=== PATIENT | female | born 1985 | race Caucasian/White ===

== ENCOUNTER 2025-03-01 17:21 | Emergency (ER) | payer BC, SELFPAY ==
[2025-03-01 17:24] VITALS: BP 140/87
[2025-03-01] MEDS: OMNIPAQUE 50 ML PO (17:32)
[2025-03-01 18:00] LABS: Hematocrit 43.0 % (37.0-47.0); Hemoglobin 14.3 g/dL (12.0-16.0); Mean Corp Hgb Conc. 33.3 g/dL (33.0-37.0); Mean Corpuscular Volume 93.1 fL (81.0-99.0); Nucleated Red Blood Cells % 0 %; Platelet Count 238 10^3/uL (130-400); Red Cell Dist. Width 11.9 % (11.5-14.5)
[2025-03-01 18:01] LABS: Urine Character Clear (Clear)
[2025-03-01 18:09] LABS: Urine Red Blood Cell 26-30 /HPF (0-2)
[2025-03-01 18:23] LABS: ALT (SGPT) 60 U/L (0-35); AST (SGOT) 56 U/L (14-36); Albumin 5.3 g/dl (3.5-5.0); Alkaline Phosphatase 52 U/L (38-126); Blood Urea Nitrogen 13 mg/dl (7-17); Calcium 10.2 mg/dl (8.4-10.2); Carbon Dioxide 22 mmol/L (22-30); Chloride 108 mmol/L (98-107); Glucose 104 mg/dl (70-99); Lipase 91 U/L (23-300); Potassium 4.3 mmol/L (3.5-5.1); Sodium 143 mmol/L (135-145); Total Protein 9.0 g/dl (6.3-8.2); eGFR > 60.00
[2025-03-01 18:24] LABS: HCG, Serum Qualitative Screen Negative
[2025-03-01 19:38] VITALS: BP 131/84
[2025-03-01 19:39] VITALS: BMI 19.9
[2025-03-01 20:00] VITALS: BP 147/92
--- NOTE | 2025-03-01 20:53 | ED.GENMED ---
History of Present Illness
General
Chief Complaint: Abdominal Pain
Source: patient
Exam Limitations: none
Time Seen by Provider: 03/01/25 19:46
Nursing documentation reviewed up to this point in time: agreed with
History of Present Illness
History of Present Illness:
39-year-old female presenting to the emergency department today with concerns of right sided lower abdominal discomfort started yesterday ongoing today. Denies vomiting or changes in bowel movements. Denies fevers.
Review of Systems
Review of Systems
Allergies reviewed?: Yes
All Other Systems: ROS reviewed and negative except as documented in HPI and ROS
Phy Exam
Physical Exam
Physical Exam:
GENERAL: Alert , in no apparent distress
EYE: pupils equal and reactive
NECK: Supple, no significant adenopathy.
ENT: o/p clr, mmm.
CARDIAC: Regular rate and rhythm .
LUNGS: Clear breath sounds bilaterally, no acute respiratory distress, no wheezes/rales/rhonchi
ABDOMEN: Slight reproducible discomfort of the right lower quadrant of the abdomen
NEUROLOGICAL: Alert and oriented, no focal neuro deficits
SKIN: Warm and dry, skin intact.
MUSCULOSKELETAL: No edema, well perfused.
PSYCH: Normal and appropriate interaction.
Course
Orders/Labs/Results
Orders:
Orders
03/01/25 17:29
Iohexol [Omnipaque] 50 ml .ROUTE .K-MED ONE
03/01/25 17:31
Test Result ONCE
03/01/25 17:32
Iohexol [Omnipaque] See Protocol PO NOW STA
03/01/25 17:39
Complete Blood Count/With Diff Urgent
Comprehensive Metabolic Panel Urgent
HCG, Serum Qualitative Screen Urgent
Lipase Urgent
Urinalysis Reflex To Culture Urgent
Date Specimen was Collected: 03/01/25
Time Specimen was Collected: 17:31
Urine Microscopic Reflex Cult Urgent
03/01/25 20:05
CT Abd/pel W Iv And Oral Contr Urgent
Reason For Exam: right sided abd pain
Abnormal Lab Results
03/01/25
17:39
WBC 13.4 H 10^3/uL
(4.8-10.8)
Abs Immat Gran (auto) 0.1 H 10^3/uL
(0-0.05)
Absolute Neuts (auto) 12.2 H 10^3/uL
(1.4-6.5)
Absolute Lymphs (auto) 0.7 L 10^3/uL
(1.2-3.4)
Neutrophils % 91.0 H %
(42.2-75.2)
Lymphocytes % 5.1 L %
(20.5-51.1)
Chloride 108 H mmol/L
(98-107)
Glucose 104 H mg/dl
(70-99)
AST 56 H U/L
(14-36)
ALT 60 H U/L
(0-35)
Total Protein 9.0 H g/dl
(6.3-8.2)
Albumin 5.3 H g/dl
(3.5-5.0)
Ur Occult Blood Reflex 4+ A
(Negative)
Urine RBC 26-30 A /HPF
(0-2)
Urine Bacteria (Reflex) Few A
(Negative)
Urine Albumin (Reflex) 1+ A
(Neg - Trace)
03/01/25 17:39
03/01/25 17:39
Vital Signs
Initial and Last Documented VS:
Initial Vital Signs
Temp Pulse Resp BP Pulse Ox
97.7 F 80 17 140/87 99
03/01/25 17:24 03/01/25 17:24 03/01/25 17:24 03/01/25 17:24 03/01/25 17:24
Last Documented Vital Signs
Temp Pulse Resp BP Pulse Ox
97.7 F 80 17 147/92 100
03/01/25 17:24 03/01/25 17:24 03/01/25 17:24 03/01/25 20:00 03/01/25 20:30
MDM/Problems Addressed
MDM/Problems Addressed:
39-year-old female presenting to the emergency department today with concerns of right lower quadrant abdominal pain starting yesterday. Slightly reproducible on exam. Slight white count 13.4 otherwise normal renal function. Some red blood cells
in the urine. CT scan showing 6 mm proximal ureteral stone. Plan for symptomatic treatment otherwise stable for outpatient follow-up with urology.
*Pulse Oximetry
SaO2: 100
Oxygen Mode of Delivery: Room air
Patient hypoxic: no (100)
*Critical Care Note
Total Time (30-74mins, 75-104mins- exclusive of procedures): Not Applicable
ED Attending Note
-
Portions of this chart may have been created with voice recognition software.� Occasional wrong word or��sound alike� substitutions may have occurred due to the inherent limitations of voice recognition software.
Discharge Plan
Departure
Patient Disposition: Home (Routine Discharge)
Date of Disposition: 03/01/25
Time of Disposition: 20:56
Patient with high blood pressure during this ER visit?: No
Condition: Good
Covid-19: Not Applicable
Discharge Problem:
Calculus, ureteral
Instructions: Kidney Stones (DC), Renal Colic (DC)
Prescriptions:
New
tamsulosin [Flomax] 0.4 mg capsule
0.4 mg PO HS Qty: 7 0RF
ibuprofen 600 mg tablet
600 mg PO Q8H PRN (Reason: Pain) Qty: 14 0RF
ondansetron 4 mg tablet,disintegrating
4 mg PO Q6H PRN (Reason: nausea and vomiting) Qty: 7 0RF
Referrals:
Flashner,Hossein C., MD [Active, Urology] - Follow up in 5-7 days
Nisa Wilson MD [Family Provider, Internal Medicine]
Activity Restrictions/Additional Instructions:
You came to the emergency department today with concerns of abdominal pain you are found to have a 6 mm kidney stone. Please take the prescribed medications with hopeful passage at home. Please have close with urology. Return for any worsening,
new or concerning symptoms.
Interventions
Interventions:
*Risk Screen - Suicide Last Done: 03/01/25 17:26
*General Assessment Last Done: 03/01/25 17:26
*Neglect/Abuse Screening Last Done: 03/01/25 17:26
*ED- Fall Risk Assessment Last Done: 03/01/25 19:39
*ED COVID-19 Vaccine History Last Done: 03/01/25 17:26
*ED Influenza Vaccine History Last Done: 03/01/25 17:26
LW-Txcput-Cjtwfixymp Assessment Last Done: 03/01/25 19:39
Discharge Date and Time
Print Language: ALBANIAN
[2025-03-01 21:00] VITALS: BP 129/93
== END 2025-03-01 21:15 | disposition home or self-care (01) ==
LOC: EMR 17:21
PROVIDERS: EMERGENCY PHYSICIAN Emergency Medicine; FAMILY PHYSICIAN Internal Medicine
DX: N13.2 Hydronephrosis with renal and ureteral calculous obstruction (principal)
CPT/HCPCS: 99284; 74177; 80053; 81003; 81015; 83690; 84703; 85025; Q9967

== ENCOUNTER 2025-03-03 07:52 | Day surgery (SDC) | payer BC, SELFPAY ==
[2025-03-03] VITALS (15 sets, daily range): BP systolic 90–140; BP diastolic 56–90; BMI 20.9; BMI 20.5
[2025-03-03] MEDS: NSS 1000 IV ×2 (08:23→15:51)
[2025-03-03] MEDS: TORADOL 30 MG IV (08:24)
[2025-03-03] MEDS: DILAUDID 1 MG IV (08:24)
[2025-03-03] MEDS: ZOFRAN 4 MG IV (08:24)
--- NOTE | 2025-03-03 08:30 | ED.GENMED ---
History of Present Illness
General
Chief Complaint: Flank Pain
Source: patient, records and previous radiology exam
Exam Limitations: none
Time Seen by Provider: 03/03/25 08:10
Nursing documentation reviewed up to this point in time: agreed with
History of Present Illness
History of Present Illness:
39-year-old female return visit with right flank and abdominal pain diagnosed with a 6 mm proximal ureteral stone few days ago pain was initially under control with some Motrin pain worsened overnight she has nausea, rating down to the right pelvis,
no fevers, before the most recent episode no prior episodes of kidney stones negative hCG on prior visit
Past History
Past History
ED Past Surgical History: and Other (Breast implant)
Social History
Tobacco: Non-smoker
Alcohol: None
Drug: None
Personal:
Living: with family
Employment: Employed
Review of Systems
Review of Systems
All Other Systems: Not applicable
Constitutional: Denies fever or fatigue
EENT: Reports no symptoms
Respiratory: Reports no symptoms
Cardiac: Denies chest pain
ABD/GI: Reports abdominal pain and nausea
: Reports flank pain
Phy Exam
Physical Exam
Physical Exam:
Physical Exam
General: 39 female looks uncomfortable due to
Neck: No jaundice
Heart: s1/s2 regular rate and rhythm, no murmur. equal radial pulses.
Lungs: no acute respiratory distress. clear bilaterally
Abdomen: Tender in the right lower abdomen
Neuro: alert and oriented. no focal neurological deficits
Skin: no rash
Psychiatric: well kept. interactive and cooperative
Extremities: no edema.
Course
Orders/Labs/Results
Orders:
Orders
03/03/25 08:18
Urinalysis Reflex To Culture Urgent
0.9% Sodium Chloride 1000 ml [Nss] 1,000 ml IV BOLUS
HYDROmorphone [Dilaudid] 1 mg IV NOW STA
Ketorolac [Toradol] 30 mg IV NOW STA
Ondansetron Injectable [Zofran] 4 mg IV NOW STA
CR Abdomen - 1 View Urgent
Comment:
Reason For Exam: pain
03/03/25 08:43
Complete Blood Count/With Diff Urgent
Comprehensive Metabolic Panel Urgent
03/03/25 09:54
UROLOGY CONSULT Routine
Consulting Provider: Hossein Arroyo
Was physician already notified: Yes
03/03/25 10:49
LevoFLOXacin 500 MG/100 ML [Levaquin] 500 mg in 100 ml IV ONCE
Abnormal Lab Results
03/03/25
08:43
RBC 4.13 L 10^6/uL
(4.20-5.40)
MCH 31.7 H pg
(27.0-31.0)
Absolute Monos (auto) 0.7 H 10^3/uL
(0.1-0.6)
Chloride 111 H mmol/L
(98-107)
AST 52 H U/L
(14-36)
ALT 54 H U/L
(0-35)
03/03/25 08:43
03/03/25 08:43
Vital Signs
Initial and Last Documented VS:
Initial Vital Signs
Temp Pulse Resp BP Pulse Ox
97.7 F 71 18 124/90 96
03/03/25 07:53 03/03/25 07:53 03/03/25 07:53 03/03/25 07:53 03/03/25 07:53
Last Documented Vital Signs
Temp Pulse Resp BP Pulse Ox
97.9 F 87 19 116/81 96
03/03/25 08:00 03/03/25 09:14 03/03/25 09:14 03/03/25 09:27 03/03/25 09:29
MDM/Problems Addressed
Differential Diagnosis Includes:
Renal colic UTI
MDM/Problems Addressed:
Flank pain
*Radiology
Radiology exam reviewed: radiology read reviewed
*Pulse Oximetry
SaO2: 97
Oxygen Mode of Delivery: Room air
Patient hypoxic: no
*Lab Rn Interpretation
Rate: Lab Rn- N/A
*Critical Care Note
Total Time (30-74mins, 75-104mins- exclusive of procedures): Not Applicable
Update Note
Update Note:
9:45 AM update labs noted x-ray noted report noted patient clinically better after narcotics and fluids is her second visit here message sent to urology
Discussed with urology to the OR later today, admit hospitalist
ED Attending Note
-
Portions of this chart may have been created with voice recognition software.� Occasional wrong word or��sound alike� substitutions may have occurred due to the inherent limitations of voice recognition software.
Discharge Plan
Departure
Patient Disposition: Admit
Date of Disposition: 03/03/25
Time of Disposition: 10:39
Admit to: OR
Presentation/result/management discussed w/ accepting MD/DO: Hospitalist
Patient with high blood pressure during this ER visit?: No
Condition: Good
Discharge Problem:
Acute flank pain, Renal colic on right side
Prescriptions:
No Action
tamsulosin [Flomax] 0.4 mg capsule
0.4 mg PO HS Qty: 7 0RF
ibuprofen 600 mg tablet
600 mg PO Q8H PRN (Reason: Pain) Qty: 14 0RF
ondansetron 4 mg tablet,disintegrating
4 mg PO Q6H PRN (Reason: nausea and vomiting) Qty: 7 0RF
Referrals:
Nisa Wilson MD [Family Provider, Internal Medicine]
Interventions
Interventions:
*Risk Screen - Suicide Last Done: 03/03/25 07:53
*General Assessment Last Done: 03/03/25 07:53
*Neglect/Abuse Screening Last Done: 03/03/25 08:57
*ED- Fall Risk Assessment Last Done: 03/03/25 08:57
MF-Nvcypa-Gfuwzomzuz Assessment Last Done: 03/03/25 08:38
ED-Female Genitourinary Assessment Last Done: 03/03/25 08:38
Discharge Date and Time
Print Language: TAMAZIGHT
[2025-03-03 08:50] LABS: Hematocrit 37.5 % (37.0-47.0); Hemoglobin 13.1 g/dL (12.0-16.0); Mean Corp Hgb Conc. 34.9 g/dL (33.0-37.0); Mean Corpuscular Volume 90.8 fL (81.0-99.0); Nucleated Red Blood Cells % 0 %; Platelet Count 193 10^3/uL (130-400); Red Cell Dist. Width 11.8 % (11.5-14.5)
[2025-03-03 09:22] LABS: ALT (SGPT) 54 U/L (0-35); AST (SGOT) 52 U/L (14-36); Albumin 4.6 g/dl (3.5-5.0); Alkaline Phosphatase 40 U/L (38-126); Blood Urea Nitrogen 17 mg/dl (7-17); Calcium 9.2 mg/dl (8.4-10.2); Carbon Dioxide 22 mmol/L (22-30); Chloride 111 mmol/L (98-107); Estimated Creatinine Clearance 98 ml/min; Glucose 96 mg/dl (70-99); Potassium 3.5 mmol/L (3.5-5.1); Sodium 143 mmol/L (135-145); Total Protein 7.3 g/dl (6.3-8.2); eGFR > 60.00
--- NOTE | 2025-03-03 10:47 | W.PN.URO.CBU ---
Today's Communication / Plan
-
to op room npo
Assessment / Plan
-
rt prox 6mm ureteral stone seen mar 01 now increased pain and returns to er with intractable pain
Diagnosis
-
Date of Service: March 03, 2025
-
Patient Diagnosis:rt prox uretral stone with intractsble pain
Post Op Day:
Subjective
-
colic no fevr chills
Objective
-
Vital Signs
Temp Pulse Resp BP Pulse Ox
97.9 F 87 19 116/81 96
03/03/25 08:00 03/03/25 09:14 03/03/25 09:14 03/03/25 09:27 03/03/25 09:29
Intake and Output
03/02/25 03/03/25 03/04/25
06:59 06:59 06:59
Intake Total 1000 / 1000
Balance 1000 / 1000
Intake:
IV fluids (Total) 1000 / 1000
NSS 1000 / 1000
Laboratory Results
03/03/25 08:43
03/03/25 08:43
Review of Systems
-
: Flank Pain
Physical Exam
-
General - well developed, well nourished, no acute distress
Chest - clear bilaterally
Abdomen - soft, non-tender, positive bowel sounds, no CVAT, no incisional pain or distention
Genitalia - normal
Rectal - normal
Skin - warm & dry with no rash
Neuro - AOx3, no motor deficits
Extremities - no clubbing, no cyanosis, no edema
Incision - clean, dry
Dressing - clean, dry, intact
Counseling
-
to op room
Care Review
Data Reviewed
Discussed with: Internal Medicine (er cdoc)
CT Scan: Image Pers Reviewed
--- NOTE | 2025-03-03 11:08 | HPS.HSE ---
Family Physician
-
Family Physician: Nisa Wilson
Chief Complaint
-
R flank pain
History of Present Illness
39yo F with PMHx of hypothyroidism came with R flank pain day before admission, found 6mm stone in R ureter associated with mild R hydroureteronephrosis, sent home for trial of passage, but came back with worsening pain radiating to R groin. XR
showed nephrolithiasis in same position. Patient declined fever, chills, dysuria. No Hx of nephrolithiasis. Previously started on Levothyroxine 50mcg 6 years ago due to symptomatic hypothyroidism.
Medical History
Past Medical History
Past Medical History: Reports Other
Additional Past Medical History:
Se above
Past Surgical History: Reports None
Social History
Tobacco: Non-smoker
Alcohol: Occasional
Drug: None
Family History
Family History: Not pertinent
Allergies / Home Medications
Allergies reflects when Allergies were last updated in [facility].
Home Medications with original date entered in [facility]
Allergy/Medication List:
Allergies
Allergy/AdvReac Type Severity Reaction Status Date / Time
amoxicillin (From Augmentin) Allergy Swelling Verified 03/03/25 07:54
clavulanic acid (From Allergy Swelling Verified 03/03/25 07:54
Augmentin)
sulfamethoxazole (From Allergy Itching Verified 03/03/25 07:54
Bactrim)
trimethoprim (From Bactrim) Allergy Itching Verified 03/03/25 07:54
Home Medications
levothyroxine 50 mcg tablet (Synthroid) 50 mcg PO DAILY 03/03/25
sennosides 8.6 mg tablet (senna) 8.6 mg PO BIDPRN PRN constipation 03/03/25
Review of Systems
-
History Source: Patient
A 12 point ROS was completed and negative except as noted: Yes
: Reports See HPI
Physical Exam
Vital Signs
Vital Signs
Temp Pulse Resp BP Pulse Ox
97.9 F 87 19 116/81 96
03/03/25 08:00 03/03/25 09:14 03/03/25 09:14 03/03/25 09:27 03/03/25 09:29
Physical Exam
General: Well Developed, Well Nourished and No Apparent Distress
HEENT: NormoCephalic, Anicteric and Moist mucous membranes
Respiratory: Clear; No Wheezes or Crackles
Cardiac: S1/S2 and Regular Rhythm; No Murmur
GI: Soft, Non Tender and Non Distended
Genito-urinary: No costovertebral tender
Musculoskeletal: No Clubbing, No Cyanosis and No Edema
Skin: Warm
Neuro: Awake, Alert, Oriented and AO x 3
Psych: Calm
Laboratory Results
-
03/03/25 08:43
03/03/25 08:43
Laboratory Results
Total Bilirubin 0.5 mg/dl (0.2-1.3) 03/03/25 08:43
AST 52 U/L (14-36) H 03/03/25 08:43
ALT 54 U/L (0-35) H 03/03/25 08:43
Alkaline Phosphatase 40 U/L (38-126) 03/03/25 08:43
Data Reviewed
-
Diagnostic Radiology: Report Reviewed by me
CT Scan: Report Reviewed by me
Lab Data: Labs Reviewed by me
Impression/Plan
-
A/P:
#R obstructive nephrolithiasis
no signs of UTI, await results of cystoscopy with stenting
Urology
IVF
NPO with sips of clears
Pain mgmt
#Hypothyroidism
cont synthroid
check TSH
#Elevated LFT
#Fatty liver disease
patient admited to frequent but not daily alcohol consumption
check HepC
Advised on alcohol cessation
Repeat LFT with PCP
DVT ppx lovenox
Full code
I ahve spent at least 76min reviewing chart, test results, communication with consultants andproviding direct patient care
--- NOTE | 2025-03-03 12:16 | EDCM ---
chart reviewed and met with pt at ED bedside.
Lives in a 2 story home with 2 kids 16 and 11. Independent, working and driving
no DME
no hx of VN nor SNF
PCP Sarah Wilson
Pharmacy [facility] in [place]
dcp is to go home with no needs
cm will continue to follow for any dcp needs
[2025-03-03 12:40] LABS: TSH 3.89 uIU/ml (0.47-4.68)
[2025-03-03 12:48] LABS: Urine Character Clear (Clear)
[2025-03-03 12:58] LABS: Hepatitis C Antibody Negative (Negative)
[2025-03-03 13:43] LABS: Urine Squamous Cell >30 /LPF (Few)
[2025-03-03 13:46] LABS: Urine Red Blood Cell >100 /HPF (0-2)
[2025-03-03] MEDS: MORPHINE SULFATE 2 MG IV (15:52)
[2025-03-03] MEDS: LOVENOX 40 MG SC (18:03)
[2025-03-03] MEDS: TORADOL 10 MG IV (18:06)
--- NOTE | 2025-03-03 19:09 | PTCARENOTE ---
Rn flow associate embalmer/funeral director- Patient's admission assessment completed remotely via phone.
--- NOTE | 2025-03-03 20:18 | W.SUR.POST ---
Surgical Immediate Post Op
Note
Pre Op Diagnosis: rt urteral stone with obstruction colic
Post Op Diagnosis: same
Procedure Performed rt uretroscopy laser basket stent:
Primary Surgeon: tramaine
Secondary Surgeons:
Anesthesia: [facility]ard [facility]
Estimated Blood Loss:1
Fluids: nss
Drains/Shunts:6 fr 24 cm jj stent
Specimens/Cultures:
Doppler/Duplex/Angio (Y/N):
Complications: 0
Operative Findingslg stone rt prox ureter:
[2025-03-04] MEDS: NSS 1000 IV (04:52)
[2025-03-04] MEDS: SYNTHROID 50 MCG PO (04:52)
[2025-03-04 07:30] VITALS: BP 116/80
--- NOTE | 2025-03-04 08:21 | W.PN.URO.CBU ---
Today's Communication / Plan
-
ready for d/c
Assessment / Plan
-
rt prox 6mm ureteral stone s/p u/l/s pain free home
Diagnosis
-
Date of Service: March 04, 2025
-
Patient Diagnosis:
Post Op Day:
Patient Diagnosis:rt prox uretral stone with intractsble pain
Post Op Day: 1
Subjective
-
feeling better
Objective
-
Vital Signs
Temp Pulse Resp BP Pulse Ox
97.9 F 68 18 112/72 97
03/03/25 22:50 03/03/25 22:50 03/03/25 22:50 03/03/25 22:50 03/03/25 22:50
Intake and Output
03/03/25 03/04/25 03/05/25
06:59 06:59 06:59
Intake Total 1480 / 1480
Balance 1480 / 1480
Intake:
Oral fluids 480 / 480
IV fluids (Total) 1000 / 1000
NSS 1000 / 1000
Other:
Number of unmeasured voidings 1
Laboratory Results
03/03/25 08:43
03/03/25 08:43
Review of Systems
-
: Frequency
Physical Exam
-
General - well developed, well nourished, no acute distress
Chest - clear bilaterally
Abdomen - soft, non-tender, positive bowel sounds, no CVAT, no incisional pain or distention
Genitalia - normal
Rectal - normal
Skin - warm & dry with no rash
Neuro - AOx3, no motor deficits
Extremities - no clubbing, no cyanosis, no edema
Incision - clean, dry
Dressing - clean, dry, intact
Care Review
Data Reviewed
Discussed with: Hospitalist and Nursing
--- NOTE | 2025-03-04 09:40 | CM ---
CM reviewed chart, patient seen bedside.
Received update from UR- patient now admitted under PSR.
Patient denies needs at this time, confirms transportation home when stable for d/c
CM will continue to follow for all needs.
Plan; home no needs
--- NOTE | 2025-03-04 11:05 | W.PN.HOSP.TC ---
Today's Communication/Plan
-
dc
Assessment / Plan
Assessment / Plan
39yo F with PMHx of hypothyroidism came with R flank pain day before admission, found 6mm stone in R ureter associated with mild R hydroureteronephrosis, sent home for trial of passage, but came back with worsening pain radiating to R groin. XR
showed nephrolithiasis in same position. Patient declined fever, chills, dysuria. No Hx of nephrolithiasis.S/P cystoscopy with JJ stent and bascet stone extraction with laser lithotripsy. During procedure no concern for infected urine as per
description. Medcially stable to be d/c off Abx as afebrile with normal WBC and no left shift on CBC.
Previously started on Levothyroxine 50mcg 6 years ago due to symptomatic hypothyroidism.
A/P:
#R obstructive nephrolithiasis
no signs of UTI, await results of cystoscopy with stenting
Urology
IVF
NPO with sips of clears
Pain mgmt
#Hypothyroidism
cont synthroid
TSH WNL
#Elevated LFT
#Fatty liver disease
patient admited to frequent but not daily alcohol consumption
HepC neg
Advised on alcohol cessation
Repeat LFT with PCP
DVT ppx lovenox
Full code
I have spent at least 36min reviewing chart, test results, communication with consultants andproviding direct patient care
Anticipated Discharge: Today
Subjective/Interval History
-
Date of Service: March 04, 2025
Objective Data
-
Vital Signs:
Vital Signs
Temp Pulse Resp BP Pulse Ox
97.8 F 70 16 116/80 97
03/04/25 07:30 03/04/25 07:30 03/04/25 07:30 03/04/25 07:30 03/04/25 07:30
I&O
03/03/25 03/04/25 03/05/25
06:59 06:59 06:59
Intake Total 1479 / 1479
Balance 1479
Review of Systems
-
History Source: Patient
All other systems: Reviewed and negative
Physical Exam
-
General: Comfortable
Neuro: Awake, Alert, Oriented and AO x 3
Psych: Calm
--- NOTE | 2025-03-04 11:10 | W.DCSUMMARY ---
Discharge Summary
Discharge Data
Date of Admission: 03/03/25
Date of Discharge: 03/04/25
-
Pending Results: No
Hospital Course
39yo F with PMHx of hypothyroidism came with R flank pain day before admission, found 6mm stone in R ureter associated with mild R hydroureteronephrosis, sent home for trial of passage, but came back with worsening pain radiating to R groin. XR
showed nephrolithiasis in same position. Patient declined fever, chills, dysuria. No Hx of nephrolithiasis.S/P cystoscopy with JJ stent and bascet stone extraction with laser lithotripsy. During procedure no concern for infected urine as per
description. Medcially stable to be d/c off Abx as afebrile with normal WBC and no left shift on CBC.
Previously started on Levothyroxine 50mcg 6 years ago due to symptomatic hypothyroidism.
I have spent at least 36min reviewing chart, test results, communication with consultants and providing direct patient care
Patient was managed for:
#R obstructive nephrolithiasis
#Hypothyroidism
#Elevated LFT
#Fatty liver disease
Discharge Plan
-
Patient Disposition: Home (Routine Discharge)
Discharge Diagnosis/Procedures: rt ureteral stone with obstruction and intractable pain
Diet: Regular
Referrals:
Hossein Arroyo MD [Active, Urology]
Referral Note: call Dr Arroyo urology [phone] to schedule next treatment You have a stent Expect frequency urgency rt flank discomfort and blood in urine until stent can be removed
Nisa Wilson MD [Family Provider, Internal Medicine]
Prescriptions:
New
phenazopyridine [Pyridium] 200 mg tablet
200 mg PO TID PRN (Reason: Pain) Qty: 9 0RF
Continued
sennosides [senna] 8.6 mg Tablet
8.6 mg PO BIDPRN PRN (Reason: constipation)
levothyroxine [Synthroid] 50 mcg Tablet
50 mcg PO DAILY
Discharge Orders:
Discharge Patient (As Directed); Ordered 03/04/25
Ordered By: Tre Hurtado
Discharge Date and Time
Print Language: FRISIAN
[2025-03-04 11:19] VITALS: BP 115/69
== END 2025-03-04 11:09 | disposition home or self-care (01) ==
LOC: SDS 07:52
PROVIDERS: ATTENDING PHYSICIAN Emergency Medicine; CONSULT PHYSICIAN Specialist; FAMILY PHYSICIAN Internal Medicine
DX: N20.1 Calculus of ureter (principal)
CPT/HCPCS: 52356; 74018; 76000; 80053; 81003; 81015; 84443; 85025; 86803; 87086; 96361; 96374; 96375; 99284; C1894; C2617